=== PATIENT | female | born 2000 | race Asian ===

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

== ENCOUNTER 2021-12-27 09:27 | Inpatient (IN) ==
--- NOTE | 2021-12-27 10:05 | Emergency Department Note ---
History of Present Illness General Chief complaint: Mental Health Evaluation Stated complaint: CUT LEFT WRIST W/INTENTION OF COMMITTING SUICIDE Time Seen by Provider: 12/27/21 09:40 Source: patient Mode of arrival: ambulatory Limitations: no limitations History of Present Illness Maximum Pain Intensity: 2 This patient comes in after having suicidal thoughts. She said she woke up feeling unmotivated and felt a lot of fear. She has a lot of life changes coming up with her graduation scheduled for today relocating to [place] and her parents are moving. I talked to her boyfriend as well who said that she had a panic attack last night after parents read her journal. She went to the bathroom and thought about hurting herself. She said "I could do 1 large cut and bleed out here". She also said "I had no intention on leaving the bathroom alive". She cut her arm and said it was not deep and she thought about cutting again. She also thought about taking pills. She feels that she is a huge danger to herself. She denies any recent illness or fever or chills. She did take 2 Tylenol for the pain but does not take any extra Tylenol. She says she is been taking her medications as directed no extra or missed dosage. She does drink heavily she says she drank last night but none today. She denies that she has any withdrawal symptoms. She occasionally uses marijuana. No physical complaints. no numbness or weakness. Her tetanus shot is up-to-date. Home Medications Medication Instructions Recorded Confirmed Type escitalopram oxalate 20 mg tablet 20 mg PO QAM 07/03/20 12/27/21 History dextroamphetamine-amphetamine ER 15 mg PO QAM 12/27/21 12/27/21 History 15 mg 24hr capsule,extend release (Adderall XR) hydroxyzine HCl 25 mg tablet 25 mg PO DIRECTED PRN 12/27/21 12/27/21 History lamotrigine 100 mg tablet 100 mg PO HS 12/27/21 12/27/21 History levonorgestrel 0.15 mg-ethinyl 1 tab PO DIRECTED 12/27/21 12/27/21 History estradiol 0.03 mg tablet (Nick (28)) Allergies Allergy/AdvReac Type Severity Reaction Status Date / Time Sulfa (Sulfonamide Allergy Severe MEDINA Verified 12/27/21 09:58 Antibiotics) JOSHUA SYNDROME Past Med/Surg History Medical History Alcohol intoxication Social History Smoking Status: Never smoker Tobacco Type: Cigarettes Preferred Language: Upper Sorbian Communication Ability: Effective Technology Professional Required: No Beliefs That Will Affect Care: None Feels Safe at Home: Yes Assistive Devices: Glasses Review of Systems A total of 10 systems reviewed and were otherwise negative Physical Exam Vital Signs Vital Signs - 24 hr 12/27/21 09:36 Temperature 36.7 C Temperature Source Temporal Artery Scan Pulse Rate 97 H Respiratory Rate 16 Respiratory Effort / Characteristics Non-Labored Spontaneous Respiratory Depth Normal Blood Pressure 132/79 Blood Pressure Mean 96 Blood Pressure Position Sitting Pulse Oximetry 97 Oxygen Delivery Method Room Air Sepsis Recent Fever Within 48 Hours No Sepsis New/Unexplained Change in Mental Status No Sepsis Action Taken by Nursing No Action Required General: Well developed well nourished teary-eyed young female who otherwise appears in no acute distress, breathing comfortably on room air. Normal speech HEENT: Normal cephalic atraumatic. Pupils are equal round and reactive to light. Extraocular movements are intact. Oropharynx is pink with moist mucous membranes. No swelling of the mouth lips or tongue. Neck: Supple with a midline trachea. No meningeal signs or stiffness, no JVD or bruits. No Stridor. Chest: Clear to auscultation bilaterally. No wheezes or rhonchi. No increased work of breathing. Heart: Regular rate and rhythm without murmurs or gallops. Abdomen: Soft nontender, nondistended without rebound guarding or rigidity. Extremities: No cyanosis clubbing or edema. No calf tenderness or assymetry. She has 3 or 4 superficial cuts on her left forearm. There is no bleeding. There is nothing that requires any suturing or specific wound care. Distally, she is neurologically and neurovascularly intact and is normal pulses. Spine/Back. Non tender to palpation. No CVA tenderness Skin: Good turgor without rashes. Neurologic exam: Cranial nerves two through 12 are intact. Motor and sensation are intact and symmetrical throughout. Medical Decision Making Differential Diagnosis Depression, anxiety, suicidal ideations, electrolyte or metabolic, toxicologic Medical Records Attestation: I reviewed the patient's medical records. Home Medications Current Medication List: was personally reviewed by me Laboratory Data Attestation: I reviewed the patient's lab results. Result diagrams: 12/27/21 10:15 12/27/21 10:15 Lab Results 12/27/21 12/27/21 12/27/21 Range/Units 09:45 09:45 09:45 WBC (4.8-10.8) K/uL RBC (4.2-5.4) M/uL Hgb (12.0-16.0) g/dL Hct (37-47) % MCV (80-100) fL MCH (25-34) pg MCHC (32-36) g/dL RDW Std Deviation (36.4-46.3) fL RDW Coeff of Gunnar (11.5-14.5) % Plt Count (130-400) K/uL MPV (7.4-10.4) fL Immature Gran % (Auto) % Neut % (Auto) % Lymph % (Auto) % Irion % (Auto) % Eos % (Auto) % Baso % (Auto) % Neut # (Auto) (1.4-6.5) K/uL Lymph # (Auto) (1.2-3.4) K/uL Irion # (Auto) (0.11-0.59) K/uL Eos # (Auto) (0-0.5) K/uL Baso # (Auto) (0-0.2) K/uL Immature Gran # (Auto) (0.00-0.02) K/uL Sodium (136-145) mmol/L Potassium (3.5-5.1) mmol/L Chloride (98-107) mmol/L Carbon Dioxide (21-32) mmol/L Anion Gap (3-11) BUN (6-23) mg/dl Creatinine (0.6-1.2) mg/dl Est Cr Clr Drug Dosing ml/min Est GFR ( Amer) ml/min Est GFR (Non-Af Amer) ml/min BUN/Creatinine Ratio (10-20) Glucose (70-99(Fasting)) mg/dl Calcium (8.5-10.1) mg/dl Total Bilirubin (0.2-1.0) mg/dl AST (13-39) U/L ALT (7-52) U/L Alkaline Phosphatase (34-104) U/L Total Protein (6.0-8.3) gm/dl Albumin (3.4-5.0) gm/dl Globulin (2.5-4.0) gm/dl Albumin/Globulin Ratio (0.9-2) TSH (0.300-4.500) uIu/ml HCG, Qual (Negative) Urine Color Dark Yellow Urine Appearance Cloudy A (Clear) Urine pH 5.5 (4.5-7.5) Ur Specific [place] 1.025 (1.000-1.030) Urine Protein Trace H (Negative) Urine Glucose (UA) Negative (Negative) Urine Ketones Trace H (Negative) Urine Blood 1+ H (Negative) Urine Nitrite Negative (Negative) Urine Bilirubin Negative (Negative) Urine Urobilinogen Negative (Negative) Ur Leukocyte Esterase 1+ H (Negative) Urine WBC (Auto) 10-30 H (0-5) /hpf Urine RBC (Auto) 5-10 H (0-4) /hpf U Hyaline Cast (Auto) 0 (0-5) /lpf U Epithel Cells (Auto) >30 H (0-5) /lpf Urine Bacteria (Auto) 1+ H (Negative) Urine Mucus Present A (None Prsent) Urine Sperm Present Salicylates (3.0-30) mg/dl Urine Opiates Screen Neg (Neg) Ur Methadone, Qual Neg (Neg) Acetaminophen (10-30) ug/ml Urine Barbiturates Neg (Neg) Ur Phencyclidine (PCP) Neg (Neg) U Amphetamin/Meth Scrn Pos H (Neg) MDMA (Ecstasy) Screen Neg (Neg) U Benzodiazepines Scrn Neg (Neg) Ur Cocaine Metabolite Neg (Neg) U Marijuana (THC) Screen Neg (Neg) Ethyl Alcohol mg/dL (<10.0) mg/dl SARS-CoV-2, RNA, NAAT NEGATIVE (NEGATIVE) 12/27/21 12/27/21 12/27/21 Range/Units 10:15 10:15 10:15 WBC 9.95 (4.8-10.8) K/uL RBC 4.40 (4.2-5.4) M/uL Hgb 13.5 (12.0-16.0) g/dL Hct 38.2 (37-47) % MCV 86.8 (80-100) fL MCH 30.7 (25-34) pg MCHC 35.3 (32-36) g/dL RDW Std Deviation 39.0 (36.4-46.3) fL RDW Coeff of Gunnar 12.1 (11.5-14.5) % Plt Count 343 (130-400) K/uL MPV 9.1 (7.4-10.4) fL Immature Gran % (Auto) 0.3 % Neut % (Auto) 71.9 % Lymph % (Auto) 21.3 % Irion % (Auto) 5.7 % Eos % (Auto) 0.6 % Baso % (Auto) 0.2 % Neut # (Auto) 7.15 H (1.4-6.5) K/uL Lymph # (Auto) 2.12 (1.2-3.4) K/uL Irion # (Auto) 0.57 (0.11-0.59) K/uL Eos # (Auto) 0.06 (0-0.5) K/uL Baso # (Auto) 0.02 (0-0.2) K/uL Immature Gran # (Auto) 0.03 H (0.00-0.02) K/uL Sodium 138 (136-145) mmol/L Potassium 3.5 (3.5-5.1) mmol/L Chloride 103 (98-107) mmol/L Carbon Dioxide 24 (21-32) mmol/L Anion Gap 11 (3-11) BUN 13 (6-23) mg/dl Creatinine 0.71 (0.6-1.2) mg/dl Est Cr Clr Drug Dosing 93.8 ml/min Est GFR ( Amer) 140.1 ml/min Est GFR (Non-Af Amer) 120.9 ml/min BUN/Creatinine Ratio 18.3 (10-20) Glucose 75 (70-99(Fasting)) mg/dl Calcium 9.2 (8.5-10.1) mg/dl Total Bilirubin 0.6 (0.2-1.0) mg/dl AST 33 (13-39) U/L ALT 27 (7-52) U/L Alkaline Phosphatase 37 (34-104) U/L Total Protein 7.5 (6.0-8.3) gm/dl Albumin 4.3 (3.4-5.0) gm/dl Globulin 3.2 (2.5-4.0) gm/dl Albumin/Globulin Ratio 1.3 (0.9-2) TSH (0.300-4.500) uIu/ml HCG, Qual Negative (Negative) Urine Color Urine Appearance (Clear) Urine pH (4.5-7.5) Ur Specific [place] (1.000-1.030) Urine Protein (Negative) Urine Glucose (UA) (Negative) Urine Ketones (Negative) Urine Blood (Negative) Urine Nitrite (Negative) Urine Bilirubin (Negative) Urine Urobilinogen (Negative) Ur Leukocyte Esterase (Negative) Urine WBC (Auto) (0-5) /hpf Urine RBC (Auto) (0-4) /hpf U Hyaline Cast (Auto) (0-5) /lpf U Epithel Cells (Auto) (0-5) /lpf Urine Bacteria (Auto) (Negative) Urine Mucus (None Prsent) Urine Sperm Salicylates (3.0-30) mg/dl Urine Opiates Screen (Neg) Ur Methadone, Qual (Neg) Acetaminophen (10-30) ug/ml Urine Barbiturates (Neg) Ur Phencyclidine (PCP) (Neg) U Amphetamin/Meth Scrn (Neg) MDMA (Ecstasy) Screen (Neg) U Benzodiazepines Scrn (Neg) Ur Cocaine Metabolite (Neg) U Marijuana (THC) Screen (Neg) Ethyl Alcohol mg/dL (<10.0) mg/dl SARS-CoV-2, RNA, NAAT (NEGATIVE) 12/27/21 12/27/21 12/27/21 Range/Units 10:15 10:15 10:15 WBC (4.8-10.8) K/uL RBC (4.2-5.4) M/uL Hgb (12.0-16.0) g/dL Hct (37-47) % MCV (80-100) fL MCH (25-34) pg MCHC (32-36) g/dL RDW Std Deviation (36.4-46.3) fL RDW Coeff of Gunnar (11.5-14.5) % Plt Count (130-400) K/uL MPV (7.4-10.4) fL Immature Gran % (Auto) % Neut % (Auto) % Lymph % (Auto) % Irion % (Auto) % Eos % (Auto) % Baso % (Auto) % Neut # (Auto) (1.4-6.5) K/uL Lymph # (Auto) (1.2-3.4) K/uL Irion # (Auto) (0.11-0.59) K/uL Eos # (Auto) (0-0.5) K/uL Baso # (Auto) (0-0.2) K/uL Immature Gran # (Auto) (0.00-0.02) K/uL Sodium (136-145) mmol/L Potassium (3.5-5.1) mmol/L Chloride (98-107) mmol/L Carbon Dioxide (21-32) mmol/L Anion Gap (3-11) BUN (6-23) mg/dl Creatinine (0.6-1.2) mg/dl Est Cr Clr Drug Dosing ml/min Est GFR ( Amer) ml/min Est GFR (Non-Af Amer) ml/min BUN/Creatinine Ratio (10-20) Glucose (70-99(Fasting)) mg/dl Calcium (8.5-10.1) mg/dl Total Bilirubin (0.2-1.0) mg/dl AST (13-39) U/L ALT (7-52) U/L Alkaline Phosphatase (34-104) U/L Total Protein (6.0-8.3) gm/dl Albumin (3.4-5.0) gm/dl Globulin (2.5-4.0) gm/dl Albumin/Globulin Ratio (0.9-2) TSH 2.008 (0.300-4.500) uIu/ml HCG, Qual (Negative) Urine Color Urine Appearance (Clear) Urine pH (4.5-7.5) Ur Specific [place] (1.000-1.030) Urine Protein (Negative) Urine Glucose (UA) (Negative) Urine Ketones (Negative) Urine Blood (Negative) Urine Nitrite (Negative) Urine Bilirubin (Negative) Urine Urobilinogen (Negative) Ur Leukocyte Esterase (Negative) Urine WBC (Auto) (0-5) /hpf Urine RBC (Auto) (0-4) /hpf U Hyaline Cast (Auto) (0-5) /lpf U Epithel Cells (Auto) (0-5) /lpf Urine Bacteria (Auto) (Negative) Urine Mucus (None Prsent) Urine Sperm Salicylates < 3.0 L (3.0-30) mg/dl Urine Opiates Screen (Neg) Ur Methadone, Qual (Neg) Acetaminophen 17 (10-30) ug/ml Urine Barbiturates (Neg) Ur Phencyclidine (PCP) (Neg) U Amphetamin/Meth Scrn (Neg) MDMA (Ecstasy) Screen (Neg) U Benzodiazepines Scrn (Neg) Ur Cocaine Metabolite (Neg) U Marijuana (THC) Screen (Neg) Ethyl Alcohol mg/dL < 10.0 (<10.0) mg/dl SARS-CoV-2, RNA, NAAT (NEGATIVE) MDM Narrative This patient comes in as described above. She has suicidal ideations and cut her arm and attempt to kill herself. She is also thoughts of taking an overdose. She is a lot of stressors. She is up-to-date on her tetanus booster. She was placed in room a 5 and evaluated myself as well as the psychiatric bilingual patient support caseworker. She had a full blood work and urine testing for medical clearance. The wound does not require any suturing. Her COVID test was negative. test was negative. She has nothing to suggest infection or any sig nificant electrolyte or metabolic abnormalities. Heart Tylenol level was within normal limits but not 0. She admits to taking 2 Tylenol for her arm pain. She has no elevation of her LFTs or coags to suggest significant ingestion. She was medically cleared and evaluated by [facility] psychiatric bilingual patient support caseworker. In the meantime her parents did arrive. They are both healthcare providers as well and I talked to them at length. The patient is voluntary and her parents are supportive and [facility]. is going to admit her for further inpatient treatment evaluation and safety. Impression & Plan Depression, Suicidal ideations, Deliberate self-cutting, Lab test negative for COVID-19 virus Discharge Plan Visit Data Chief Complaint: Mental Health Evaluation Stated Complaint: CUT LEFT WRIST W/INTENTION OF COMMITTING SUICIDE ED Provider: Dimitris Webster Discharge Problem: Depression, Suicidal ideations, Deliberate self-cutting, Lab test negative for COVID-19 virus Discharge Instructions Interventions: ED Discharge Assessment Last Done: 12/27/21 14:51
[2021-12-27 10:10] LABS: Appearance Urine Cloudy (Clear); Bacteria Urine Automated 1+ (Negative); Bilirubin Urine Negative (Negative); Blood Urine 1+ (Negative); Color Urine Dark Yellow; Epithelial Cell Urine Auto >30 /lpf (0-5); Glucose Urine UA Negative (Negative); Ketones Urine Trace (Negative); Leukocyte Esterase Urine 1+ (Negative); Nitrite Urine Negative (Negative); Protein Urine Trace (Negative); Specific Gravity Urine 1.025 (1.000-1.030); Urobilinogen Urine Negative (Negative); pH Urine 5.5 (4.5-7.5)
[2021-12-27 10:44] LABS: Basophils # (auto) 0.02 K/uL (0-0.2); Basophils % (auto) 0.2 %; Eosinophils # (auto) 0.06 K/uL (0-0.5); Eosinophils % (auto) 0.6 %; Hematocrit (blood only) 38.2 % (37-47); Hemoglobin 13.5 g/dL (12.0-16.0); Immature Granulocytes # (auto) 0.03 K/uL (0.00-0.02); Immature Granulocytes % (auto) 0.3 %; Lymphocytes # (auto) 2.12 K/uL (1.2-3.4); Lymphocytes % (auto) 21.3 %; Mean Corpuscular Hemoglobin 30.7 pg (25-34); Mean Corpuscular Hgb Conc 35.3 g/dL (32-36); Mean Corpuscular Volume 86.8 fL (80-100); Mean Platelet Volume 9.1 fL (7.4-10.4); Monocytes # (auto) 0.57 K/uL (0.11-0.59); Monocytes % (auto) 5.7 %; Neutrophils # (auto) 7.15 K/uL (1.4-6.5); Neutrophils % (auto) 71.9 %; Platelet Count 343 K/uL (130-400); RDW Coefficient of Variation 12.1 % (11.5-14.5); White Blood Count 9.95 K/uL (4.8-10.8)
[2021-12-27 10:55] LABS: Amphetamines+Metham, Urine Pos (Neg); Barbiturates, Urine Neg (Neg); Benzodiazepine, Urine Neg (Neg); Cocaine, Urine Neg (Neg); MDMA (Ecstacy), Urine Neg (Neg); Methadone, Urine Neg (Neg); Opiate, Urine Neg (Neg); Phencyclidine, Urine Neg (Neg)
[2021-12-27 11:00] LABS: Cast Urine Automated 0 /lpf (0-5); Mucus Urine Present (None Prsent)
[2021-12-27 11:01] LABS: Sperm Urine Present
[2021-12-27 11:07] LABS: Acetaminophen 17 ug/ml (10-30); Salicylate < 3.0 mg/dl (3.0-30)
[2021-12-27 11:08] LABS: Albumin Globulin Ratio 1.3 (0.9-2); Albumin Level 4.3 gm/dl (3.4-5.0); BUN Creatinine Ratio 18.3 (10-20); Bilirubin,Total 0.6 mg/dl (0.2-1.0); Calcium 9.2 mg/dl (8.5-10.1); Creatinine Clr Calc Pharmacy 93.8 ml/min; Est GFR (African American) 140.1 ml/min; Est GFR (Non-African American) 120.9 ml/min; Globulin 3.2 gm/dl (2.5-4.0); Potassium 3.5 mmol/L (3.5-5.1); Total Protein 7.5 gm/dl (6.0-8.3)
[2021-12-27 11:13] LABS: Partial Thromboplastin Ratio 0.9; Partial Thromboplastin Time 24.2 Seconds (21.0-31.0); Prothrombin Time 10.9 Seconds (9.0-12.0)
[2021-12-27 11:15] LABS: Pregnancy Test, Serum Negative (Negative)
[2021-12-27] MEDS ORDERED: BISMUTH SUBSALICYLATE LIQD 236 ML PO PRN (14:11)
[2021-12-27] MEDS ORDERED: ACETAMINOPHEN 325 MG TAB PO PRN (14:11)
[2021-12-27] MEDS ORDERED: SODIUM CHLORIDE 0.65% NA SOLN 45 ML (OCEAN) PRN (14:11)
[2021-12-27] MEDS ORDERED: MAGNESIUM HYDROXIDE SUSP 30 ML UDC PO PRN (14:11)
[2021-12-27] MEDS ORDERED: ALUMINUM/MAGNESIUM SUSP 30 ML UDC PO PRN (14:11)
[2021-12-27] MEDS ORDERED: hydrOXYzine HCl 25 MG TAB PO PRN (14:11)
[2021-12-27] MEDS ORDERED: [UNRECOGNIZED DRUG - OTHER] SCH (16:00)
[2021-12-27] MEDS: lamoTRIgine 100 MG TAB PO SCH (20:44)
[2021-12-27] MEDS: hydrOXYzine HCl 25 MG TAB PO PRN (21:50)
[2021-12-27] MEDS ORDERED: lamoTRIgine 25 MG TAB PO SCH (22:00)
[2021-12-28] MEDS: ESCITALOPRAM OXALATE 20 MG TAB PO SCH (08:18)
[2021-12-28] MEDS: lamoTRIgine 25 MG TAB PO SCH (08:18)
[2021-12-28] MEDS ORDERED: PATIENT'S OWN ORAL CONTRACEPTIVE PO SCH (09:00)
[2021-12-28] MEDS ORDERED: lamoTRIgine 100 MG TAB PO SCH (09:00)
[2021-12-28] MEDS: PATIENT'S OWN ORAL CONTRACEPTIVE PO SCH (12:06)
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
[2021-12-28] MEDS: lamoTRIgine 100 MG TAB PO SCH (21:39)
[2021-12-28] MEDS: hydrOXYzine HCl 25 MG TAB PO PRN (21:39)
[2021-12-29] MEDS: ESCITALOPRAM OXALATE 20 MG TAB PO SCH (08:36)
[2021-12-29] MEDS: lamoTRIgine 25 MG TAB PO SCH (08:37)
--- NOTE | 2021-12-29 09:16 | Discharge Summary ---
Date of Service December 29, 2021 History of Present Illness Le reports increase in anxiety and depressive symptoms in anticipation of multiple life transitions. She states that overall senior year has been "the best for me" as "meds have been working and I've been taking care of myself." As it came closer to the time for her to graduate she became overwhelmed with emotions. 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 Her parents will be moving from [place] to [place] which will result in the loss of her childhood home. She admits to drinking more alcohol than usual on 12/26/21 which only added to her low mood. She woke up feeling "hung over" and "knew if I walked and was a sobia downer I wouldn't be able to take it." She superficially cut her left forearm several times as a suicidal gesture and then called her boyfriend to come to the ED. Her parents were supportive of her seeking treatment and she was a bit surprised by this as culturally still "some taboo". Parents immigrated from the [facility] and she was raised very traditional values. She feels their comments about her achievement and weight led to perfectionism and preoccupation with weight. She admits to restricting and purging earlier on in her college career and did seek psychiatric care around a previous ED visit for SIB, the timing of which coincided with her decision so leave [employer] [employer] [facility] (lost scholarship). In general her sleep/energy/appetite have been "pretty good" and has been taking medications consistently. This all "came over me like a wave of emotions." Physical Exam Psychiatric See admission H&P and DOD assessment. Vital Signs (Past 24 Hours) Last Vital Signs Temp 37 C 12/29/21 06:27 Pulse 84 12/29/21 06:28 Resp 16 12/29/21 06:27 BP 113/72 12/29/21 06:28 Pulse Ox 98 12/27/21 15:18 Principal Diagnosis major depressive disorder Psychiatric Data See daily stay summary. In short, safety was maintained and the patient was cooperative with care. Her medications were continued unchanged as trigger was reaction to phase of life change. The patient signed a 72 hr notice on 12/29/21. A family session was held with her parents and safety plan was completed prior to discharge. Day of Discharge Assessment Today the patient voices readiness for discharge. They note improvement in mood and deny thoughts to harm self or others. Thoughts remain organized and they are improved from admission. There is no evidence of psychosis. They agree to take mediations as prescribed and keep follow-up appointments. They are stable for discharge to outpatient level of care. Transition of Care Transition Of Care Record: was reviewed with the patient Advance Directives Advance Directives Information Provided: Yes Advance Directives: No Mental Health Advance Directive: No Advance Directives on File: No Living Will: No Power of All Purpose Clerk: No Advance Directives Reason:: Declines as Mental Health Visit. Suicide Risk Level Suicide Risk Level Comments: low as stable for discharge to outpatient level of care. She will clean up her bathroom with roommate present in case triggering and will give sharps to her roommate if urges to SIB return. 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) Stable Relationships: Yes Supportive Family: Yes Tobacco Cessation at Discharge Tobacco Cessation Medication Prescribed at Discharge: Not Applicable/Non-Smoker Total Time Total Time Spent: Greater Than 30 Minutes Total Time Includes: Examination of the patient, Discharge Planning and Medication Reconciliation Discharge Data Lab Results 12/27/21 12/27/21 12/27/21 09:45 09:45 09:45 WBC RBC Hgb Hct MCV MCH MCHC RDW Std Deviation RDW Coeff of Gunnar Plt Count MPV Immature Gran % (Auto) Neut % (Auto) Lymph % (Auto) Stone % (Auto) Eos % (Auto) Baso % (Auto) Neut # (Auto) Lymph # (Auto) Stone # (Auto) Eos # (Auto) Baso # (Auto) Immature Gran # (Auto) PT INR APTT PTT Ratio Sodium Potassium Chloride Carbon Dioxide Anion Gap BUN Creatinine Est Cr Clr Drug Dosing Est GFR ( Amer) Est GFR (Non-Af Amer) BUN/Creatinine Ratio Glucose Calcium Total Bilirubin AST ALT Alkaline Phosphatase Total Protein Albumin Globulin Albumin/Globulin Ratio TSH HCG, Qual Urine Color Dark Yellow Urine Appearance Cloudy A Urine pH 5.5 Ur Specific [place] 1.025 Urine Protein Trace H Urine Glucose (UA) Negative Urine Ketones Trace H Urine Blood 1+ H Urine Nitrite Negative Urine Bilirubin Negative Urine Urobilinogen Negative Ur Leukocyte Esterase 1+ H Urine WBC (Auto) 10-30 H Urine RBC (Auto) 5-10 H U Hyaline Cast (Auto) 0 U Epithel Cells (Auto) >30 H Urine Bacteria (Auto) 1+ H Urine Mucus Present A Urine Sperm Present Salicylates Urine Opiates Screen Neg Ur Methadone, Qual Neg Acetaminophen Urine Barbiturates Neg Ur Phencyclidine (PCP) Neg U Amphetamin/Meth Scrn Pos H MDMA (Ecstasy) Screen Neg U Benzodiazepines Scrn Neg Ur Cocaine Metabolite Neg U Marijuana (THC) Screen Neg Ethyl Alcohol mg/dL SARS-CoV-2, RNA, NAAT NEGATIVE 12/27/21 12/27/21 12/27/21 10:15 10:15 10:15 WBC 9.95 RBC 4.40 Hgb 13.5 Hct 38.2 MCV 86.8 MCH 30.7 MCHC 35.3 RDW Std Deviation 39.0 RDW Coeff of Gunnar 12.1 Plt Count 343 MPV 9.1 Immature Gran % (Auto) 0.3 Neut % (Auto) 71.9 Lymph % (Auto) 21.3 Stone % (Auto) 5.7 Eos % (Auto) 0.6 Baso % (Auto) 0.2 Neut # (Auto) 7.15 H Lymph # (Auto) 2.12 Stone # (Auto) 0.57 Eos # (Auto) 0.06 Baso # (Auto) 0.02 Immature Gran # (Auto) 0.03 H PT INR APTT PTT Ratio Sodium 138 Potassium 3.5 Chloride 103 Carbon Dioxide 24 Anion Gap 11 BUN 13 Creatinine 0.71 Est Cr Clr Drug Dosing 93.8 Est GFR ( Amer) 140.1 Est GFR (Non-Af Amer) 120.9 BUN/Creatinine Ratio 18.3 Glucose 75 Calcium 9.2 Total Bilirubin 0.6 AST 33 ALT 27 Alkaline Phosphatase 37 Total Protein 7.5 Albumin 4.3 Globulin 3.2 Albumin/Globulin Ratio 1.3 TSH HCG, Qual Negative Urine Color Urine Appearance Urine pH Ur Specific [place] Urine Protein Urine Glucose (UA) Urine Ketones Urine Blood Urine Nitrite Urine Bilirubin Urine Urobilinogen Ur Leukocyte Esterase Urine WBC (Auto) Urine RBC (Auto) U Hyaline Cast (Auto) U Epithel Cells (Auto) Urine Bacteria (Auto) Urine Mucus Urine Sperm Salicylates Urine Opiates Screen Ur Methadone, Qual Acetaminophen Urine Barbiturates Ur Phencyclidine (PCP) U Amphetamin/Meth Scrn MDMA (Ecstasy) Screen U Benzodiazepines Scrn Ur Cocaine Metabolite U Marijuana (THC) Screen Ethyl Alcohol mg/dL SARS-CoV-2, RNA, NAAT 12/27/21 12/27/21 12/27/21 10:15 10:15 10:15 WBC RBC Hgb Hct MCV MCH MCHC RDW Std Deviation RDW Coeff of Gunnar Plt Count MPV Immature Gran % (Auto) Neut % (Auto) Lymph % (Auto) Stone % (Auto) Eos % (Auto) Baso % (Auto) Neut # (Auto) Lymph # (Auto) Stone # (Auto) Eos # (Auto) Baso # (Auto) Immature Gran # (Auto) PT INR APTT PTT Ratio Sodium Potassium Chloride Carbon Dioxide Anion Gap BUN Creatinine Est Cr Clr Drug Dosing Est GFR ( Amer) Est GFR (Non-Af Amer) BUN/Creatinine Ratio Glucose Calcium Total Bilirubin AST ALT Alkaline Phosphatase Total Protein Albumin Globulin Albumin/Globulin Ratio TSH 2.008 HCG, Qual Urine Color Urine Appearance Urine pH Ur Specific [place] Urine Protein Urine Glucose (UA) Urine Ketones Urine Blood Urine Nitrite Urine Bilirubin Urine Urobilinogen Ur Leukocyte Esterase Urine WBC (Auto) Urine RBC (Auto) U Hyaline Cast (Auto) U Epithel Cells (Auto) Urine Bacteria (Auto) Urine Mucus Urine Sperm Salicylates < 3.0 L Urine Opiates Screen Ur Methadone, Qual Acetaminophen 17 Urine Barbiturates Ur Phencyclidine (PCP) U Amphetamin/Meth Scrn MDMA (Ecstasy) Screen U Benzodiazepines Scrn Ur Cocaine Metabolite U Marijuana (THC) Screen Ethyl Alcohol mg/dL < 10.0 SARS-CoV-2, RNA, NAAT 12/27/21 Unknown WBC RBC Hgb Hct MCV MCH MCHC RDW Std Deviation RDW Coeff of Gunnar Plt Count MPV Immature Gran % (Auto) Neut % (Auto) Lymph % (Auto) Stone % (Auto) Eos % (Auto) Baso % (Auto) Neut # (Auto) Lymph # (Auto) Stone # (Auto) Eos # (Auto) Baso # (Auto) Immature Gran # (Auto) PT 10.9 INR 1.0 APTT 24.2 PTT Ratio 0.9 Sodium Potassium Chloride Carbon Dioxide Anion Gap BUN Creatinine Est Cr Clr Drug Dosing Est GFR ( Amer) Est GFR (Non-Af Amer) BUN/Creatinine Ratio Glucose Calcium Total Bilirubin AST ALT Alkaline Phosphatase Total Protein Albumin Globulin Albumin/Globulin Ratio TSH HCG, Qual Urine Color Urine Appearance Urine pH Ur Specific [place] Urine Protein Urine Glucose (UA) Urine Ketones Urine Blood Urine Nitrite Urine Bilirubin Urine Urobilinogen Ur Leukocyte Esterase Urine WBC (Auto) Urine RBC (Auto) U Hyaline Cast (Auto) U Epithel Cells (Auto) Urine Bacteria (Auto) Urine Mucus Urine Sperm Salicylates Urine Opiates Screen Ur Methadone, Qual Acetaminophen Urine Barbiturates Ur Phencyclidine (PCP) U Amphetamin/Meth Scrn MDMA (Ecstasy) Screen U Benzodiazepines Scrn Ur Cocaine Metabolite U Marijuana (THC) Screen Ethyl Alcohol mg/dL SARS-CoV-2, RNA, NAAT Hospital Course (1) Depression: The patient was admitted to the [facility] ([facility] mental health unit) on q15 min checks (behavioral with suicide precautions) for safety. The patient will participate in group, recreational, and milieu therapies and will be offered additional individual and family sessions as clinically appropriate. Hold Adderall XR during hospitalization. Continue Lexapro and Lamictal. She is aware of risks/benefits/alternatives with regards to these medications. Mental Health & Subst Abuse Tx Therapist Name of Therapist: [facility] Post Discharge Appointments Primary Care Physician Name Of Family Doctor: SUSHANT Smoking Cessation Counseling Tobacco Cessation Medication Prescribed at Discharge: Not Applicable/Non-Smoker Discharge Plan Discharge Items Patient Disposition: Home - Self-Care Reason For Visit: MAJOR DEPRESSIVE DISORDER Discharge Diagnosis: same Activity: Resume your previous activity Non-emergency contact: Primary Care Provider Call non-emergency contact if: you have any medication questions and your symptoms worsen Follow-up/Referrals: [facility] [Primary Care Provider] - Diet: Regular Addtl Attending Provider Instructions: SPECIAL CARE INSTRUCTIONS: 1. Follow through with your scheduled aftercare appointments. If unable to keep an appointment, please call to reschedule. 2. Take your medication only as prescribed. Medication should not be changed or stopped without the approval of your doctor. In the event of worsening symptoms or concerns about side effects, contact your doctor immediately. 3. Utilize new healthy coping skills, anger management skills, and stress management skills learned during your hospitalization. Journal feelings and process them with a support person. Identify stressors or situations that may result in relapse, deterioration or inappropriate behaviors and develop a plan to deal with those issues. 4. If your coping skills are ineffective and you are in crisis, contact your outpatient providers for direction. If unable to reach your providers, please call the [facility] CRISIS LINE AT , go to the [facility] walk-in center at [address], [address], [place], or go to the closest Emergency Room. 5. Avoid alcohol and un-prescribed drugs. 6. You have been provided with the Mental Health Advance Directives Pamphlet for your review. 7. Your condition is stable for discharge to outpatient level of care, but recovery is an ongoing process. Ifthoughts to harm yourself or others return, follow the safety plan developed during your stay. Planning for a safe return home includes securing weapons. Our treatment team recommends weaponsbe removed from the home until your outpatient provider reassesses your progress. In rare cases where the items themselvescannot be removed, guns and ammunitionshould be secured separatelyand keys stored by a reliable personoutside of the home. If you were admitted on an involuntary commitment, the police or other legal authorities may be involved in this process. AFTERCARE APPOINTMENTS: * Please call your insurance company prior to your scheduled appointment to confirm your aftercare providers are covered. Take your insurance information to your appointments. WHO TO CALL AND WHEN: Medical Emergencies: For questions or emergencies related to your hospital stay, please contact the Inpatient Behavioral Health Unit at [phone]. A disbursing officer is on-call 14/03 for the Behavioral Health Unit for emergencies At any time you feel your situation is an emergency, you may also call 911 immediately. Pending Studies at Discharge: No Stand-Alone Forms: My [employer], Smoking Cessation Medications and DC Order Prescriptions: New lamotrigine [Lamictal] 25 mg Tablet 50 mg PO QAM Qty: 1 RF: 0 Continued escitalopram oxalate 20 mg tablet 20 mg PO QAM RF: 0 hydroxyzine HCl 25 mg tablet 25 mg PO DIRECTED PRN (Reason: Sleep) RF: 0 lamotrigine 100 mg tablet 100 mg PO HS RF: 0 dextroamphetamine-amphetamine [Adderall XR] 15 mg capsule,extended release 24hr 15 mg PO QAM RF: 0 levonorgestrel-ethinyl estrad [Kurvelo (28)] 0.15-0.03 mg tablet 1 tab PO DIRECTED RF: 0 Discharge Orders: Discharge Order (Routine); Ordered 12/29/21 Ordered By: Natalee Joe Admission Data Admit Date/Time: 12/27/21 14:11 Attending Provider: Natalee Joe Admit Provider: Natalee Joe Primary Care Provider: [facility] Coding Level of Care Code 51970 D/C day mgmt > 30 min Diagnoses Depression F32.A Depression Type: unspecified
[2021-12-29] MEDS: PATIENT'S OWN ORAL CONTRACEPTIVE PO SCH (11:48)
[2021-12-30 09:33] LABS: Amphetamine Urine, Confirm 14700 ng/mL (<250); Methamphetamine, Ur Confirm NEGATIVE ng/mL (<250)
== END 2021-12-29 13:45 | disposition home or self-care (01) | DRG 881 ==
LOC: ED 09:27 → 3S 14:11